=== PATIENT | female | born 1995 | race Caucasian/White ===

== ENCOUNTER 2022-05-01 08:07 | Emergency (ER) | payer OTHER, SELFPAY ==
[2022-05-01 08:20] VITALS: BP 122/74; PULSE 108; RESP 18; TEMP 37; O2SAT 98; BMI 39.4
[2022-05-01 08:50] LABS: COVID-19 Test Negative (Negative); IDNOW Serial# 55D5AD1C
--- NOTE | 2022-05-01 08:55 | ED.URI ---
HPI - URI/Sore Throat General Chief Complaint: Extremity Injury, Upper Stated Complaint: congestion, cough Time Seen by Provider: 05/01/22 08:54 Source: patient Mode of arrival: ambulatory Limitations: language barrier ([place]ran-speaking medical assisting program director utilized) History of Present Illness HPI Narrative: Patient presents emergency department today for evaluation denies productive cough and nasal congestion with onset of symptoms yesterday. Her son is sick with similar symptoms. Denies fevers, chills, sore throat, ear pain, chest pain, palpitations, shortness of breath, difficulty breathing, nausea, vomiting, abdominal pain. Related Data Allergies Allergy/AdvReac Type Severity Reaction Status Date / Time No Known Allergies Allergy Unverified 05/18/20 19:48 [No Known Allergies*] Review of Systems Review of Systems: Constitutional: No fever. No chills. No weakness. No fatigue. ENT/ Mouth: No Ear Pain, positive Nasal Congestion, no sore throat, No Rhinorrhea, No Swallowing Difficulty Skin: No rash or itching. Cardiovascular: No chest pain. No palpitations. Respiratory: No shortness of breath. Positive cough. No sputum production. Gastrointestinal: No nausea. No vomiting. No diarrhea. No abdominal pain. Genitourinary: No burning micturition. No urinary frequency. Neurologic: No headache. No dizziness. No syncope. No numbness or tingling in the extremities. Musculoskeletal: No muscle pain. No back pain. No joint pain or stiffness. Yes all other systems are reviewed and are negative PMFSH Past Medical History Attestation statement: The following information was validated with the patient. Source: old records reviewed Social History Social History Advance Directives: No Advance Directives Information Provided: No Physical Exam Vital Signs: Vital Signs: Last Vital Signs Temp 98.6 F 05/01/22 08:20 Pulse 108 H 05/01/22 08:20 Resp 18 05/01/22 08:20 BP 122/74 05/01/22 08:20 Pulse Ox 98 05/01/22 08:20 O2 Del Method 05/01/22 08:20 BMI result Body Mass Index 39.4 Vital signs have been reviewed as normal and appeared to be correct. Blood pressure normal.? Heart rate normal.? Respiration rate normal. Temperature normal.? Oxygen saturation normal. Appearance: Alert.?Oriented to person, place and time. No acute distress.?Normal affect. Eyes: Pupils equal, round and reactive to light.? ENT: TM normal bilaterally. Pharynx normal.?? Neck: Normal inspection.? Neck supple.??No cervical adenopathy CVS: Heart sounds normal. Normal heart rate and rhythm.? Pulses normal.?? Respiratory: No respiratory distress.? Lung sounds clear to auscultation bilaterally?? Abdomen: Soft and non-tender. Normoactive bowel sounds. Skin: Skin warm and dry.? Normal skin color.? ? Extremities: No lower extremity edema.? Neuro: Moves all extremities spontaneously. Sensation intact bilaterally. No motor deficits. Ambulates with normal steady gait. Course Course Course Narrative: Patient is a 19-year-old female with no significant past medical history, presenting for evaluation of upper respiratory symptoms. COVID-19 testing negative. At this time history and physical exam not consistent with ACS/PE/pneumonia. Well-appearing, nontoxic, afebrile, or tachypnea/hypoxia. Speaking clear full sentences, ambulatory with steady gait. Discussed conservative treatment including rest, hydration, Tylenol/ibuprofen as needed for fever and body aches, saline nasal spray, humidifier, [id number] cold medication. Advised to follow-up with primary care provider as needed, discussed reasons to return back to the emergency department. All questions were answered. Patient discharged home in stable condition. MDM - URI/Sore Throat Medical Records Attestation: I reviewed the patient's medical records. Lab Data Attestation: I reviewed the patient's lab results. Labs: Lab Results 05/01/22 Range/Units 08:28 COVID-19 (CRISTINA) Negative (Negative) COVID-19 Clin Com See Note Discharge Plan Discharge Clinical Impression: Upper respiratory infection Patient Disposition: Home, Self-Care Instructions: Upper Respiratory Infection (ED) Additional Instructions: COVID-19 testing was performed today in resulted as negative. However your symptoms digits speaking yesterday, you continue to have symptoms over the next 2-3 days you should consider having this test repeated. Be sure to rest, stay well hydrated drinking plenty of fluids, eat small frequent meals. Tylenol/ibuprofen can be used as needed for fever/pain. [id number] cold medications may be helpful as well for symptoms. Saline nasal spray, humidifier may be helpful for nasal congestion. You may return to the emergency department with any new or worsening symptoms or concerns. Follow-up with your primary care provider as needed. Interventions: ED Discharge Assessment Last Done: 05/01/22 09:20 Discharge Date/Time: 05/01/22 09:21 Print Language: [place]
== END 2022-05-01 09:21 | disposition home or self-care (01) ==
PROVIDERS: Emergency Provider Emergency Medicine
DX: J06.9 Acute upper respiratory infection, unspecified (principal); R05.9 Cough, unspecified; Z20.822 Contact with and (suspected) exposure to COVID-19
CPT/HCPCS: 87635; 99282; 99283